=== PATIENT | female | born 1945 | race Caucasian/White ===

== ENCOUNTER → 2016-07-22 | Outpatient (CLI) | payer OTHER | LOC: FIMAGING 12:47 | DX: Z09 Encounter for follow-up examination after completed treatment for conditions other than malignant neoplasm (principal); Z98.890 Other specified postprocedural states | CPT/HCPCS: G0204 ==

== ENCOUNTER → 2017-06-13 | Outpatient (CLI) | payer OTHER | LOC: FIMAGING 13:41 | PROVIDERS: ATTEND Neurological Surgery | DX: M41.26 Other idiopathic scoliosis, lumbar region (principal); M51.36 Other intervertebral disc degeneration, lumbar region; M48.061 Spinal stenosis, lumbar region without neurogenic claudication ==

== ENCOUNTER → 2017-08-06 | Outpatient (CLI) | payer OTHER | LOC: FIMAGING 11:18 | PROVIDERS: ATTEND Family Medicine | DX: Z12.31 Encounter for screening mammogram for malignant neoplasm of breast (principal) ==

== ENCOUNTER 2017-08-09 14:25 | Day surgery (SDC) | payer OTHER ==
--- NOTE | 2017-08-09 14:15 | PDANEPAE ---
ANE History of Present Illness here for egd/eus ANE Past Medical History - Cardiovascular History Hx Hypertension: Yes Hx Arrhythmias: No Hx Chest Pain: No Hx Coronary Artery / Peripheral Vascular Disease: No Hx CHF / Valvular Disease: No Hx Palpitations: No - Pulmonary History Hx COPD: No Hx Asthma/Reactive Airway Disease: No Hx Recent Upper Respiratory Infection: No Hx Oxygen in Use at Home: No Hx Sleep Apnea: No - Neurologic History Hx Cerebrovascular Accident: No Hx Seizures: No Hx Dementia: No Neurologic History Comment: PAST MIGRAINES - Endocrine History Hx Diabetes: Yes Endocrine History Comment: prediabetic - Renal History Hx Renal Disorders: No - Liver History Hx Hepatic Disorders: No - Neurological & Psychiatric Hx Hx Neurological and Psychiatric Disorders: No Neurological / Psychiatric History Comment: MILD ANXIETY/INSOMNIA - Cancer History Hx Cancer: No - Congenital Disorder History Hx Congenital Disorders: No - GI History Hx Gastrointestinal Disorders: Yes Gastrointestinal History Comment: hiatal hernia - Other Health History Other Health History: NEG - Chronic Pain History Chronic Pain: Yes (BACK PAIN LUMBAR) - Surgical History Prior Surgeries: microdiscectomy, foraminotomy,hysterectomy. EPIDURAL INJS LUMBAR. TUBAL LIGATION 1979. CHOLECYSTECOMY 1996 ANE Review of Systems Review of systems is: negative Review of Systems: - Exercise capacity Exercise capacity: >=4 METS METS (RN): 4 METS ANE Patient History - Allergies Allergies/Adverse Reactions: nitrofurantoin macrocrystalline [From Macrodantin] Allergy (Severe, Verified 14:09) Fever - Home Medications Home medications: home medication list seen and reviewed Home Medications: Aspirin 81mg (OTC) 81 mg PO DAILY 09/09/15 [Last Taken 09/15/15] Atorvastatin Calcium 10 mg PO HS 09/09/15 [Last Taken 09/22/15 22:00] Lisinopril 20 mg PO DAILY 09/09/15 [Last Taken 09/22/15 22:00] Metformin HCl 500 mg PO BID 09/09/15 [Last Taken 09/22/15 19:00] Mvi, Adult No.2 Without Vit K 1 tab PO DAILY 09/09/15 [Last Taken 09/15/15] [facility] 3 500 Softgel 700 mg PO BID 09/09/15 [Last Taken 09/15/15] Vitamin E 1 cap PO DAILY 09/09/15 [Last Taken 09/15/15] Herbals/Supplements -Info Only 07/28/17 [Last Taken Unknown] Niacin 07/28/17 [Last Taken Unknown] - NPO status NPO Status: no food or drink >8 hours - Smoking Hx Smoking Status: Former smoker - Family Anes Hx Family Hx Anesthesia Complications: no ANE Labs/Vital Signs - Vital Signs Vital Signs: reviewed preoperatively; see RN documention for details Height: 154.94 cm Weight: 82.024 kg ANE Anesthesia Plan Anesthesia Plan: GA with mask
[2017-08-09] MEDS ORDERED: LR 1,000 ML IV ONE (14:45)
[2017-08-09] MEDS ORDERED: LIDOCAINE 1% 2 ML INJ ID PRN (14:45)
[2017-08-09] MEDS ORDERED: LIDOCAINE 1% 2 ML INJ ONE (14:46)
[2017-08-09] MEDS ORDERED: PROPOFOL/EMULSION 500 MG/50 ML BOTTLE IV ONE (15:17)
--- NOTE | 2017-08-09 15:23 | PDGENHP ---
History & Physical Chief Complaint: subepithelial lesion History of Present Illness: 72 year old female presents for evaluation of subepithelial lesion. Pertinent Past, Social, Family History: PMHx: DM, HTN. PSurgHx: CCY, TA Relevant Physical Exam: HEENT: anicteric. CV: RRR +s1s2. lungs: CTAB. Abd: soft, nt, + bS Cardiorespiratory Assessment: ASA 2
[2017-08-09] MEDS ORDERED: LR 500 ML IV PRN (15:35)
[2017-08-09] MEDS ORDERED: NS 500 ML IV PRN (15:35)
[2017-08-09] MEDS ORDERED: fentaNYL 100 MCG/2 ML INJ IVP PRN (15:35)
[2017-08-09] MEDS ORDERED: ALBUTEROL 3 ML DEYVIAL IH PRN (15:35)
--- NOTE | 2017-08-09 15:36 | PDANEPAE ---
ANE History of Present Illness here for egd/eus ANE Past Medical History - Cardiovascular History Hx Hypertension: Yes Hx Arrhythmias: No Hx Chest Pain: No Hx Coronary Artery / Peripheral Vascular Disease: No Hx CHF / Valvular Disease: No Hx Palpitations: No - Pulmonary History Hx COPD: No Hx Asthma/Reactive Airway Disease: No Hx Recent Upper Respiratory Infection: No Hx Oxygen in Use at Home: No Hx Sleep Apnea: No Sleep Apnea Screening Result - Last Documented: Positive - Neurologic History Hx Cerebrovascular Accident: No Hx Seizures: No Hx Dementia: No Neurologic History Comment: PAST MIGRAINES - Endocrine History Hx Diabetes: Yes Endocrine History Comment: prediabetic - Renal History Hx Renal Disorders: No - Liver History Hx Hepatic Disorders: No - Neurological & Psychiatric Hx Hx Neurological and Psychiatric Disorders: No Neurological / Psychiatric History Comment: MILD ANXIETY/INSOMNIA - Cancer History Hx Cancer: No - Congenital Disorder History Hx Congenital Disorders: No - GI History Hx Gastrointestinal Disorders: Yes Gastrointestinal History Comment: hiatal hernia - Other Health History Other Health History: NEG - Chronic Pain History Chronic Pain: Yes (BACK PAIN LUMBAR) - Surgical History Prior Surgeries: microdiscectomy, foraminotomy,hysterectomy. EPIDURAL INJS LUMBAR. TUBAL LIGATION 1979. CHOLECYSTECOMY 1996 ANE Review of Systems Review of systems is: negative Review of Systems: - Exercise capacity Exercise capacity: >=4 METS METS (RN): 4 METS ANE Patient History - Allergies Allergies/Adverse Reactions: nitrofurantoin macrocrystalline [From Macrodantin] Allergy (Severe, Verified 14:09) Fever - Home Medications Home medications: home medication list seen and reviewed Home Medications: Aspirin 81mg (OTC) 81 mg PO DAILY 09/09/15 [Last Taken 08/02/17] Atorvastatin Calcium 10 mg PO HS 09/09/15 [Last Taken 08/08/17 20:00] Lisinopril 20 mg PO DAILY 09/09/15 [Last Taken 08/09/17] Metformin HCl 500 mg PO BID 09/09/15 [Last Taken 08/06/17] Mvi, Adult No.2 Without Vit K 1 tab PO DAILY 09/09/15 [Last Taken 08/02/17] [place] 3 500 Softgel 700 mg PO BID 09/09/15 [Last Taken 08/02/17] Vitamin E 1 cap PO DAILY 09/09/15 [Last Taken 08/02/17] Herbals/Supplements -Info Only 07/28/17 [Last Taken 08/02/17] Niacin 07/28/17 [Last Taken 08/02/17] - NPO status NPO Status: no food or drink >8 hours NPO Since - Liquids (Date): 08/09/17 NPO Since - Liquids (Time): 07:00 NPO Since - Solids (Date): 08/09/17 NPO Since - Solids (Time): 07:00 - Smoking Hx Smoking Status: Former smoker - Family Anes Hx Family Hx Anesthesia Complications: no ANE Labs/Vital Signs - Vital Signs Vital Signs: reviewed preoperatively; see RN documention for details Blood Pressure: 95/72 Heart Rate: 73 Respiratory Rate: 16 O2 Sat (%): 95 Height: 154.94 cm Weight: 82.024 kg ANE Physical Exam - Airway Neck exam: FROM Mallampati Score: Class 1 - Pulmonary Pulmonary: no respiratory distress - Cardiovascular Cardiovascular: regular rate and rhythym - ASA Status ASA Status: II ANE Anesthesia Plan Anesthesia Plan: GA with mask
[2017-08-09] MEDS ORDERED: PROPOFOL 200 MG/20 ML VIAL ONE (15:43)
[2017-08-09] MEDS ORDERED: INDOMETHACIN 50 MG SUPP PR PRN (16:11)
[2017-08-09] MEDS ORDERED: NS 500 ML IV SCH (16:15)
[2017-08-09 16:33] VITALS: BP 111/71; PULSE 72; RESP 15; TEMP 97.7; O2SAT 100
--- NOTE | 2017-08-09 19:04 | POSTANESTH ---
Post Anesthetic Evaluation Cardiovascular Status: Normal, Stable Respiratory Status: Normal, Stable Level of Consciousness/Mental Status: Can Participate in Eval Pain Control: Adequate, Prn Tx Ordered Nausea/Vomiting Control: Adequate, Prn Tx Ordered Complications Possibly Related to Anesthesia: None Noted
--- NOTE | 2017-08-09 20:45 | GPN ---
[f rep st] PROCEDURE NOTE DATE OF PROCEDURE: 08/09/2017 PROCEDURE: Esophagogastroscopy with biopsy and endoscopic ultrasound. INDICATION: The patient is a 72-year-old female, presents for evaluation/surveillance of a subepithe lial lesion in the cardia of the stomach. CONSENT: Risks, benefits, and alternatives of the procedure discussed in great detail with the patie nt. Risks of infection, bleeding, perforation, sedation were discussed. All questions answered. In formed consent was obtained. MEDICATIONS: Propofol. Please see Anesthesia for details. ESTIMATED BLOOD LOSS: Insignificant. ESOPHAGOGASTROSCOPY EXAMINATION: The Olympus upper endoscope was inserted in the mouth and advanced to the esophagus. The proximal and mid esophagus were normal in appearance. The stomach was entered and closely examined, including retroflexed views of angulus, cardia and fund us. A large hiatal hernia was noted. In the cardia of the stomach, a large 2 cm lesion was seen. T unnel biopsies were taken after EUS examination. The antrum and body were erythematous in a patchy distribution, and biopsies were taken. The duodenal bulb was entered and the duodenum was normal in appearance. ENDOSCOPIC ULTRASOUND EXAMINATION: The Olympus linear echoendoscope was introduced in the mouth and advanced to the 2nd portion of duodenum. The esophagus and stomach and duodenum were visualize endos onographically. The lesion of the cardia was attempted to be studied, but the closest the scope could get was approxi mately 3 cm from the lesion. It was hypoechoic around it and measured approximately 1.5 cm. It appe ared to rest in the muscularis propria layer, but it was seen at least 3-4 cm from the ultrasound pro be, making visualization difficult. The pancreas was examined from the uncinate process to the tail, where the spleen was seen. The panc reatic parenchyma had hyperechoic foci. The common bile duct was seen and was without stone, stricture, stenosis. No obvious liver lesions n oted. IMPRESSION: 1. Stable size of lesion. 2. Gastritis status post biopsy. 3. Hiatal hernia. 4. Subepithelial lesion. RECOMMENDATION: 1. Follow up on biopsy results. 2. We will discuss plan with patient after biopsy results are back. /[id number]/MODL
== END 2017-08-09 17:13 | disposition home or self-care (01) ==
LOC: FSGY 14:25
PROVIDERS: ATTEND Internal Medicine Gastroenterology
PROC: 0DB68ZX Excision of Stomach, Via Natural or Artificial Opening Endoscopic, Diagnostic (ICD-10-PCS; principal; 2017-08-09 15:45)
DX: K31.89 Other diseases of stomach and duodenum (principal); E11.9 Type 2 diabetes mellitus without complications; I10 Essential (primary) hypertension; K44.9 Diaphragmatic hernia without obstruction or gangrene
CPT/HCPCS: J2704

== ENCOUNTER → 2018-04-09 | Outpatient (CLI) | payer OTHER | LOC: FIMAGING 14:13 | PROVIDERS: ATTEND Neurological Surgery | DX: M51.37 Other intervertebral disc degeneration, lumbosacral region (principal); M53.87 Other specified dorsopathies, lumbosacral region; M48.07 Spinal stenosis, lumbosacral region ==

== ENCOUNTER → 2018-04-18 | Outpatient (CLI) | payer OTHER | LOC: BMCIMAGING 11:05 | PROVIDERS: ATTEND Physician Assistant | DX: Z13.820 Encounter for screening for osteoporosis (principal); M85.89 Other specified disorders of bone density and structure, multiple sites; M51.36 Other intervertebral disc degeneration, lumbar region; M48.07 Spinal stenosis, lumbosacral region; M51.17 Intervertebral disc disorders with radiculopathy, lumbosacral region ==

== ENCOUNTER 2018-04-26 09:03 | Inpatient (IN) | payer OTHER ==
--- NOTE | 2018-04-26 06:22 | PDHPUP ---
History & Physical Update H&P update statement: This history and physical update is based on an assessment of the patient which was completed after admission or registration (within 24 hours), but prior to the surgery/procedure. H&P update: H&P reviewed & patient examined, no change in patient's condition since H&P completed
[~2018-04-26 09:03] MED LIST: DEXAMETHASONE 4 MG/ML VIAL ONE; LIDOCAINE 2% 5 ML SDV ONE; ONDANSETRON 4 MG/2 ML VIAL ONE; PROPOFOL 200 MG/20 ML VIAL ONE; PROPOFOL/EMULSION 500 MG/50 ML BOTTLE IV ONE; ROCURONIUM 50 MG/5 ML VIAL ONE; fentaNYL 250 MCG/5 ML INJ ONE
[2018-04-26] MEDS ORDERED: LIDOCAINE 1% 2 ML INJ ID PRN (09:12)
[2018-04-26] MEDS ORDERED: LR 1,000 ML IV ONE (09:12)
[2018-04-26] MEDS ORDERED: ACETAMINOPHEN 500 MG TAB PO ONE (09:31)
[2018-04-26] MEDS ORDERED: ceFAZolin 2 GM/DEXTROSE 100 ML IV ONE (09:31)
[2018-04-26] MEDS ORDERED: oxyCODONE IR 5 MG TAB PO PRN (09:31)
[2018-04-26] MEDS ORDERED: HYDROmorphONE/DILAUDID 2 MG/ML INJ IVP PRN (09:31)
[2018-04-26] MEDS ORDERED: LR 500 ML IV PRN (09:31)
[2018-04-26] MEDS ORDERED: ONDANSETRON 4 MG/2 ML VIAL IVP PRN ×2 (09:31→10:45)
[2018-04-26] MEDS ORDERED: GABAPENTIN 300 MG CAP PO ONE (09:31)
[2018-04-26] MEDS ORDERED: MIDAZOLAM 2 MG/2 ML VIAL IVP ONE (09:31)
[2018-04-26] MEDS ORDERED: NALOXONE HCL 0.4 MG/ML INJ IVP PRN ×2 (09:31→10:45)
[2018-04-26] MEDS ORDERED: fentaNYL 100 MCG/2 ML INJ IVP PRN (09:31)
[2018-04-26] MEDS ORDERED: PROMETHAZINE HCL 25 MG/ML INJ IVP PRN (09:31)
[2018-04-26] MEDS ORDERED: PHENYLEPHRINE HCL 100 MCG/ML SYR IVP PRN (09:31)
[2018-04-26] MEDS ORDERED: METOCLOPRAMIDE 10 MG/2 ML VIAL IVP PRN (09:31)
[2018-04-26] MEDS ORDERED: GABAPENTIN 300 MG CAP ONE (09:55)
[2018-04-26] MEDS ORDERED: BACITRACIN 50,000 UNITS/10 ML SYR IRR ONE (10:02)
[2018-04-26] MEDS ORDERED: THROMBIN (BOVINE) 5,000 UNIT VIAL TP ONE (10:02)
[2018-04-26] MEDS ORDERED: BUPIVACAINE/EPI 0.25% 30 ML SDV ONE (10:02)
[2018-04-26] MEDS ORDERED: CHLORHEXIDINE GLUC HIBICLENS 118 ML BTL TP ONE (10:02)
--- NOTE | 2018-04-26 10:26 | PDANEPAE ---
ANE Past Medical History - Cardiovascular History Hx Hypertension: Yes Hx Arrhythmias: No Hx Chest Pain: No Hx Coronary Artery / Peripheral Vascular Disease: No Hx CHF / Valvular Disease: No Hx Palpitations: No - Pulmonary History Hx COPD: No Hx Asthma/Reactive Airway Disease: No Hx Recent Upper Respiratory Infection: No Hx Oxygen in Use at Home: No Hx Sleep Apnea: No Sleep Apnea Screening Result - Last Documented: Positive - Neurologic History Hx Cerebrovascular Accident: No Hx Seizures: No Hx Dementia: No Neurologic History Comment: PAST MIGRAINES - Endocrine History Hx Diabetes: Yes Endocrine History Comment: prediabetic - Renal History Hx Renal Disorders: No - Liver History Hx Hepatic Disorders: No - Neurological & Psychiatric Hx Hx Neurological and Psychiatric Disorders: No Neurological / Psychiatric History Comment: MILD ANXIETY/INSOMNIA - Cancer History Hx Cancer: No - Congenital Disorder History Hx Congenital Disorders: No - GI History Hx Gastrointestinal Disorders: Yes Gastrointestinal History Comment: hiatal hernia - Other Health History Other Health History: NEG - Chronic Pain History Chronic Pain: Yes (BACK PAIN LUMBAR) - Surgical History Prior Surgeries: microdiscectomy, foraminotomy,hysterectomy. EPIDURAL INJS LUMBAR. TUBAL LIGATION 1979. CHOLECYSTECOMY 1996 ANE Review of Systems Review of Systems: - Exercise capacity METS (RN): 4 METS ANE Patient History - Allergies Allergies/Adverse Reactions: nitrofurantoin macrocrystalline [From Macrodantin] Allergy (Severe, Verified 14:09) Fever - Home Medications Home Medications: Aspirin 81mg (OTC) 81 mg PO DAILY 09/09/15 [Last Taken 04/16/18] Atorvastatin Calcium 10 mg PO HS 09/09/15 [Last Taken 04/25/18 21:00] Metformin HCl 500 mg PO BID 09/09/15 [Last Taken 04/26/18 05:30] Mvi, Adult No.2 Without Vit K 1 tab PO DAILY 09/09/15 [Last Taken 04/16/18] [place] 3 500 Softgel 700 mg PO BID 09/09/15 [Last Taken 04/16/18] Vitamin E 1 cap PO DAILY 09/09/15 [Last Taken 04/16/18] Herbals/Supplements -Info Only 07/28/17 [Last Taken 04/16/18] Niacin 07/28/17 [Last Taken 04/16/18] Olmesartan Medoxomil 04/26/18 [Last Taken 04/25/18 21:00] - NPO status NPO Since - Liquids (Date): 04/25/18 NPO Since - Liquids (Time): 21:00 NPO Since - Solids (Date): 04/25/18 NPO Since - Solids (Time): 19:30 - Smoking Hx Smoking Status: Former smoker - Family Anes Hx Family Hx Anesthesia Complications: no ANE Labs/Vital Signs - Vital Signs Height: 154.94 cm Weight: 83.915 kg ANE Physical Exam - Airway Neck exam: FROM Mallampati Score: Class 2 Mouth exam: normal dental/mouth exam - Pulmonary Pulmonary: no respiratory distress, no rales or rhonchi, clear to auscultation - Cardiovascular Cardiovascular: regular rate and rhythym, no murmur, rub, or gallop - ASA Status ASA Status: II ANE Anesthesia Plan Anesthesia Plan: general endotracheal anesthesia
[2018-04-26] MEDS ORDERED: ZOLPIDEM TARTRATE 5 MG TAB PO PRN (10:45)
[2018-04-26] MEDS ORDERED: ONDANSETRON DISINTEGRATING 4 MG TAB PO PRN (10:45)
[2018-04-26] MEDS ORDERED: NS 1,000 ML IV SCH (10:45)
[2018-04-26] MEDS ORDERED: LACTULOSE 20 GM/30 ML UDCUP PO PRN (10:45)
[2018-04-26] MEDS ORDERED: POLYETHYLENE GLYCOL 3350 17 GM PKT PO PRN (10:45)
[2018-04-26] MEDS ORDERED: diphenhydrAMINE 25 MG CAP PO PRN (10:45)
[2018-04-26] MEDS ORDERED: MAGNESIUM HYDROXIDE 30 ML UDCUP PO PRN (10:45)
[2018-04-26] MEDS ORDERED: HYDROmorphONE/DILAUDID 6 MG/30 ML PCA IV PRN (10:45)
[2018-04-26] MEDS ORDERED: HYDROmorphONE/DILAUDID 1 MG/ML INJ IVP PRN (10:45)
[2018-04-26] MEDS ORDERED: HYDROCODONE/APAP 5/325 TAB PO PRN (10:45)
[2018-04-26] MEDS ORDERED: BISACODYL 10 MG SUPP PR PRN (10:45)
[2018-04-26] MEDS ORDERED: ePHEDrine SULFATE 25 MG/5 ML SYR ONE (11:14)
[2018-04-26] MEDS ORDERED: PHENYLEPHRINE HCL 100 MCG/ML SYR ONE ×2 (11:14→11:57)
[2018-04-26] MEDS ORDERED: PROPOFOL/EMULSION 500 MG/50 ML BOTTLE IV ONE ×3 (12:01→13:04)
[2018-04-26] MEDS ORDERED: PHENYLEPHRINE 10 MG/ML SDV ONE (12:36)
--- NOTE | 2018-04-26 14:37 | POSTOPPROG ---
Post Op Note Date of Operation: 04/26/18 Surgeon: Hveer Lopez Restaurant Associate: KHURRAM Guerrero Anesthesiologist: MD Micheal Anesthesia: GET(General Endotracheal), Local (Specify) Pre-op Diagnosis: lumbar stenosis, RLE pain Post-op Diagnosis: lumbar stenosis, RLE pain Indication: lumbar radiculopathy Procedure: TLIF L3/4 and L4/5 Findings: see op report Inf/Abcess present in the surg proc area at time of surgery?: No Depth: Deep Incisional (Fascial) EBL: 100-500 Total fluids administered: see anesthesia record Complications: none Drains: Jordan Martinez
--- NOTE | 2018-04-26 14:45 | SOAPPROG ---
SOAP Progress Note Assessment/Plan: Post Op Visit: S: Awake and alert. Pt with expected lower back pain O: AFVSS/PERRLA/EOMI no droop CN 2-12 grossly intact +lt touch 5/5 BUE/BLE = CDI LEANNA in place A/P: 72 yo female that is s/p TLIF L3/4 and L4/5 -orders in place -call with any questions or concerns -pt seen by Dr Lopez -post op xrays in am -PT/OT ICD10 Worksheet Patient Problems: Problems Problem Status Onset Arthrodesis status Acute Lumbar radicular pain Acute Lumbar stenosis Acute - ICD10 Problem Qualifiers (1) Lumbar stenosis (2) Lumbar radicular pain (3) Arthrodesis status
[2018-04-26] MEDS ORDERED: DIAZEPAM 5 MG/ML 1 ML SYR ONE (15:27)
[2018-04-26] MEDS ORDERED: DIAZEPAM 5 MG/ML 1 ML SYR IVP ONE (15:45)
--- NOTE | 2018-04-26 16:38 | GOP ---
DATE OF OPERATION: 04/26/2018 SURGEON: Beau Lopez MD NEUROSURGEON: Beau Lopez MD CIRCULATION WORKER: EVER Pickett PREOPERATIVE DIAGNOSIS: Lumbar degenerative scoliosis L3-4, L4-5, lumbar degenerative disk disease L 2-3, 3-4, 4-5, 5-1, severe right lumbosacral radiculopathy, right foraminal stenosis, L3-4, L4-5, aaron or surgery right L4-5. POSTOPERATIVE DIAGNOSIS: PROCEDURE PERFORMED: Posterolateral and intervertebral arthrodesis with right-sided angelic decompressi ons at L3-4, L4-5 ([id number], [id number]), posterior segmental instrumentation L3, L4, L5, spinal stereotaxy, microscope, placement of biomechanical intervertebral device L3-4, L4-5, same incision bone graft rebecca vest. FINDINGS: ESTIMATED BLOOD LOSS: 200 cc. INDICATIONS: The patient is a 72-year-old with prior history of an L4-5 right-sided decompression wi th good clinical result at that time who developed over the last several months, increasingly severe and intractable right lumbosacral radiculopathy, I think principally due to compression of the L4 ner ve root in the neural foramen. She also had right lateral recess stenosis at L3-4. She had a degene rative tilt of L5 on S1 with severe left foraminal stenosis at L5-S1, but had no left-sided symptoms. At one point, we had discussed doing an L4-5, 5-1 fusion on her, but she developed intractable right- sided pain, and I thought L3-4, 4-5, 5-1 should be considered. I spent considerable time looking at her films and I was very concerned about her obesity, as well as her advanced age, and after discussi ng this with her, in the absence of left-sided symptoms, I thought we should focus on just the right- sided symptoms at L3-4, L4-5. I did express my opinion that she might likely need surgery at L5-S1 i n the very near future, but leaving this unaddressed currently in the absence of symptoms from that l obedel, I thought it might allow us to do a better job of L3-4, L4-5, and decrease the strain on the abilio ttom of the construct at L4-5. The risk of continued symptoms nerve injury, spinal fluid leak, and p seudoarthrosis, as well as adjacent segment disease, and the possible need for surgery at L2-3 and L5 -S1 in the future was discussed. She understood these risks and she did want to proceed. DESCRIPTION OF PROCEDURE: Patient was taken to the operating room, placed in supine position. Gener al anesthesia was begun. She was flipped prone onto the Jordan table. Care was taken to pad all po ints of contact. Her back was sterilely prepped and draped in usual fashion. We marked a midline in cision. She had a prior incision that was about 13 to 14 mm in length. We marked it and then extended it sig nificantly rostrally and inferiorly for a total length of our incision of about 8.5 cm. The subcutan eous tissue was dissected using Bovie cautery down to the fascia and a subperiosteal dissection was m paz down the inferior lamina of L2. The lamina of L3, 4, and 5 was exposed. We shot localizing x-ra ys. We denuded the bilateral facet joints at L3-4, L4-5. There was a terrible degenerative tilt of L4 and L5, and the L4 pedicle was virtually touching the L5 pedicle. We attached the [employer] frame, performed an O-arm spin, and using frameless Stealth stereotaxy, we placed pedicle screws b ilaterally at L3, L4, and L5. There was good bony purchase. Her bone quality was so-so, it was not terrific, but it was not terrible, and I was happy with the purchase of the screws. We then began to subsequently get elevation on the right-hand side at 3- 5 to reduce the degenerative scoliosis, and we did it piecemeal fashion going a few millimeters and simply walking up the karen. We got great redu ction of the degenerative scoliosis and got the L4 screw off the L5 screws. I was very happy with th e alignment that we were able to achieve. There was still some bony retrolisthesis of L3 on L4 that remained, but the degenerative scoliosis was totally reduced. We then removed all the soft tissue of the bone at L3-4, L4-5 and harvested the L4 spinous process fo r autologous grafting purposes. We harvested the inferior L3 spinous process for autologous grafting purposes. Under the microscope, we drilled a complete right L3 hemilaminectomy, removing the L3-4 f acet joint on the right-hand side, and we did, likewise, on the right at L4-5, drilling away the righ t L4-5 facet joint. This obviously was more difficult because of the prior laminotomy on the right-h and side at L4-5, and this took considerable time. We got great decompression L3-4, and then, we wor ked our way down into the area at the prior laminotomy at L4-5. We were able to totally un-pinch the exiting L4 nerve root at that level. We then removed the rostrum of the L5 lamina and worked our wa y flush with the L5 pedicle, and there was adherent scar in this location, but we were able to remove all this material and left only a tiny piece of scar stuck to the dura. We mobilized the traversing L5 nerve root at that level, incised the L4-5 disk, and removed the disk and the cartilaginous endpl ates to create arthrodesis. We did roughen the subchondral bone for arthrodesis at that level. We went to the L3-4 level where we did, likewise, and here is a little more straightforward because o f it being a virgin level. We incised the L3-4 disk, removed the disk and the cartilaginous endplate s. We roughened the subchondral bone to create arthrodesis. We then sized each of those and chose a 7 x 23 mm device. We packed it with bone autograft and BMP and then took the device and packed the device with BMP. We inserted both of the devices under fluoroscopic guidance and I was happy with th e device. The device at L3-4 was definitely sunk within the disk space. There was still some retrol isthesis of L3 on L4, and it was more flush with the posterior aspect of the L4 vertebral body, but i t was well sunken into the disk space away from the nerves. We expanded under fluoroscopic guidance and I was happy with the position of the devices. We then inspected them again once they had been ex panded and I will still happy with it. We decorticated all remaining posterolateral bone bilaterally , placed bone autograft and BMP posterolaterally bilaterally, followed by a subfascial drain. We irr igated with large amounts of antibiotic saline throughout the surgery. We then closed the incision i n multiple layers using Vicryl sutures. A running PDS was placed in the skin, itself. There were no complications. Patient tolerated the procedure well. COMPLICATIONS: None. INSTRUMENTATION USED: Solera 5.5 mm system. We used a 7 x 23 mm Elevate cage at 3-4,4-5. /[id number]/MODL
[2018-04-26] MEDS: ACETAMINOPHEN 500 MG TAB PO SCH ×2 (16:58→21:32)
[2018-04-26] MEDS: GABAPENTIN 300 MG CAP PO SCH ×2 (16:58→21:33)
--- NOTE | 2018-04-26 17:05 | PDMN ---
Medical Necessity Medical necessity: Pt meets IP criteria as of 04/26/[address] [facility] [facility] Lumbar fusion, Medicare IP only procedure.
[2018-04-26] MEDS: oxyCODONE IR 5 MG TAB PO PRN (17:06)
[2018-04-26] MEDS: METHOCARBAMOL 750 MG TAB PO PRN (17:06)
[2018-04-26] MEDS: ceFAZolin 2 GM/DEXTROSE 100 ML IV SCH (17:47)
[2018-04-26] MEDS: FAMOTIDINE 20 MG TAB PO SCH (21:34)
[2018-04-26] MEDS: SENNOSIDES/DOCUSATE SODIUM TAB PO SCH (21:34)
[2018-04-27] MEDS: ceFAZolin 2 GM/DEXTROSE 100 ML IV SCH (02:11)
[2018-04-27] MEDS: METHOCARBAMOL 750 MG TAB PO PRN ×2 (03:01→13:26)
[2018-04-27] MEDS: oxyCODONE IR 5 MG TAB PO PRN ×3 (03:03→21:31)
[2018-04-27 05:08] LABS: PLATELET COUNT 305 10^3/uL (150-400)
[2018-04-27] MEDS: ACETAMINOPHEN 500 MG TAB PO SCH ×3 (05:43→21:23)
[2018-04-27] MEDS: GABAPENTIN 300 MG CAP PO SCH ×3 (05:43→21:22)
[2018-04-27] MEDS ORDERED: DIAZEPAM 5 MG TAB PO PRN (07:14)
--- NOTE | 2018-04-27 07:22 | NEUSURGPN ---
Date of Surgery: 04/26/18 Post Op Day: 1 Assessment/Plan: Assessment: 72 yo female that is s/p TLIF L3/4 and L4/5 POD #1 Plan: -s/p TLIF L3/4 and L4/5: doing well this am, pt with expected lower back pain -brace when out of bed -pt states that her legs feel better -orders in place -call with any questions or concerns -pt seen by Dr Lopez as well -post op xrays this am -PT/OT-CPM -pt understands and agrees Subjective: Awake and alert. NAD. Pt with expected lower back pain. Legs feel better. No brock/neck/chest/abd or gu complaints. Objective: AFVSS/PERRLA/EOMI no droop CN 2-12 grossly intact +lt touch 5/5 BUE/BLE = CDI LEANNA in place Neuro Check Frequency: per routine Urinary Catheter in Place: No Catheter Insertion Date: 04/26/18 - Physician Discussed Patient with : John Patient Seen by : John Neurosurgery Physical Exam - Vitals, I&O, Labs I and O 04/26/18 04/27/18 04/28/18 05:59 05:59 05:59 Intake Total 2559 Output Total 1545 Balance 1014 Weight 83.915 kg Intake: Oral (ml) 900 IV Intake (ml) 1659 Output: Urine (ml) 1175 Catheter 1175 LEANNA Drain Output (ml) 370 Back Jordan Martinez 370 Vital Signs Temp Pulse Resp BP Pulse Ox 37.1 C 78 18 96/60 L 97 04/27/18 04:44 04/27/18 04:44 04/27/18 04:44 04/27/18 04:44 04/27/18 04:44 Laboratory Results 04/27/18 04:50 04/27/18 04:50 ICD10 Worksheet Patient Problems: Problems Problem Status Onset Arthrodesis status Acute Lumbar radicular pain Acute Lumbar stenosis Acute - ICD10 Problem Qualifiers (1) Lumbar stenosis (2) Lumbar radicular pain (3) Arthrodesis status
[2018-04-27] MEDS: SENNOSIDES/DOCUSATE SODIUM TAB PO SCH ×2 (08:13→21:22)
[2018-04-27] MEDS: ATORVASTATIN CALCIUM 10 MG TAB PO SCH (08:13)
[2018-04-27] MEDS: FLUoxetine 20 MG CAP PO SCH (08:14)
[2018-04-27] MEDS: FAMOTIDINE 20 MG TAB PO SCH ×2 (08:14→21:22)
[2018-04-27] MEDS: MAGNESIUM OXIDE 400 MG TAB PO SCH (08:14)
[2018-04-27] MEDS: metFORMIN HCL 500 MG TAB PO SCH ×2 (08:14→17:57)
[2018-04-27] MEDS: OLMESARTAN MEDOXOMIL 20 MG TAB PO SCH (21:21)
[2018-04-28] MEDS: METHOCARBAMOL 750 MG TAB PO PRN ×2 (03:08→10:42)
[2018-04-28] MEDS: GABAPENTIN 300 MG CAP PO SCH (05:44)
[2018-04-28 05:48] LABS: PLATELET COUNT 246 10^3/uL (150-400)
[2018-04-28] MEDS: ACETAMINOPHEN 500 MG TAB PO SCH ×3 (08:31→21:13)
[2018-04-28] MEDS: metFORMIN HCL 500 MG TAB PO SCH ×2 (08:31→17:37)
[2018-04-28] MEDS: ATORVASTATIN CALCIUM 10 MG TAB PO SCH (08:31)
[2018-04-28] MEDS: FAMOTIDINE 20 MG TAB PO SCH ×2 (08:32→21:15)
[2018-04-28] MEDS: FLUoxetine 20 MG CAP PO SCH (08:32)
[2018-04-28] MEDS: SENNOSIDES/DOCUSATE SODIUM TAB PO SCH ×2 (08:32→21:14)
[2018-04-28] MEDS: MAGNESIUM OXIDE 400 MG TAB PO SCH (08:32)
--- NOTE | 2018-04-28 08:57 | NEUSURGPN ---
Date of Surgery: 04/26/18 Post Op Day: 2 Assessment/Plan: Assessment: 72 yo female that is s/p TLIF L3/4 and L4/5 POD #2 Plan: -s/p TLIF L3/4 and L4/5: doing well this am, pt with expected lower back pain -ok to pull drain-order in place -will decrease gabapentin as pt is a "bit loopey on it" per RN and Pt -H/H was 6.7/22 this am-will discuss with Dr Lopez regarding need for blood. Vitals are fine. Pt feels ok and is not dizzy. Pt walking in ch well. Will start iron replacement. Repeat CBC in am -brace when out of bed -pt states that her legs feel better -orders in place -call with any questions or concerns -pt seen by Dr Lopez as well -post op xrays reviewed and look good -PT/OT-CPM -pt understands and agrees -plan for dc likely tomorrow Subjective: Awake and alert. NAD. Eating/drinking and voiding. No f/c/n/v/d. No brock/cp/ sob/abd or gu complaints. Objective: AFVSS/PERRLA/EOMI no droop CN 2-12 grossly intact +lt touch 5/5 BUE/BLE = CDI LEANNA in place-to be removed Neuro Check Frequency: per routine Urinary Catheter in Place: No Catheter Insertion Date: 04/26/18 - Physician Discussed Patient with : John Patient Seen by : John Neurosurgery Physical Exam - Vitals, I&O, Labs I and O 04/27/18 04/28/18 04/29/18 05:59 05:59 05:59 Intake Total 2559 350 Output Total 1545 50 Balance 1014 300 Weight 83.915 kg Intake: Oral (ml) 900 350 IV Intake (ml) 1659 Output: Urine (ml) 1175 Catheter 1175 LEANNA Drain Output (ml) 370 50 Back Jordan Martinez 370 50 Other: Intake Quantity Yes Sufficient Number of Voids Toilet 1 Vital Signs Temp Pulse Resp BP Pulse Ox 37.2 C 78 16 99/55 L 93 04/28/18 07:46 04/28/18 07:46 04/28/18 07:46 04/28/18 07:46 04/28/18 07:46 Laboratory Results 04/28/18 05:03 04/27/18 04:50 ICD10 Worksheet Patient Problems: Problems Problem Status Onset Arthrodesis status Acute Lumbar radicular pain Acute Lumbar stenosis Acute - ICD10 Problem Qualifiers (1) Lumbar stenosis (2) Lumbar radicular pain (3) Arthrodesis status
--- NOTE | 2018-04-28 10:11 | ASMTCMCOM ---
CM Note CM Note Notes: 04/28/2018 Case Management Note Pt admitted for LBP, radiculopathy and TLIF L3/4 and L4/5. Met w/pt to discuss discharge needs. Pt lives with . Pt is able to drive and there are no difficulties with obtaining groceries. Pt states "I'm just old, not elderly". Pt was independent with ADL's prior to admission. PT is recommending home. PCP is Ani Gibbons through [facility]. Case Management d/c poc: independent with follow up as directed. Case Management available if needs change. Date Signed: 04/28/2018 10:11 AM Electronically Signed By:Eliza Rolon RN
--- NOTE | 2018-04-28 11:40 | ASMTCMCOM ---
CM Note CM Note Notes: PT notified CM of recommendation for SNF. CM discussed options with pt and requested referral be sent to [facility]. Pt does have supportive family and help after discharge. CM to follow. Plan: [facility]. Date Signed: 04/28/2018 11:40 AM Electronically Signed By:ZAC Maldonado
[2018-04-28] MEDS: oxyCODONE IR 5 MG TAB PO PRN ×2 (15:07→21:15)
[2018-04-28] MEDS: GABAPENTIN 100 MG CAP PO SCH ×2 (15:07→21:14)
[2018-04-28] MEDS: OLMESARTAN MEDOXOMIL 20 MG TAB PO SCH (21:22)
[2018-04-29 05:25] LABS: PLATELET COUNT 255 10^3/uL (150-400)
[2018-04-29] MEDS: ACETAMINOPHEN 500 MG TAB PO SCH ×2 (05:59→14:47)
[2018-04-29] MEDS: GABAPENTIN 100 MG CAP PO SCH ×2 (05:59→14:47)
--- NOTE | 2018-04-29 06:12 | NEUSURGPN ---
Assessment/Plan: Assessment: 72 yo female that is s/p TLIF L3/4 and L4/5 POD #3 Plan: -H/H was 6.7 stable. Will start on iron replacement. -brace when out of bed -call with any questions or concerns -pt seen by Dr Lopez as well -post op xrays reviewed and look good -PT/OT -pt understands and agrees -Dispo planning for today if continues to do well. Will need repeat CBC on Wednesday Subjective: Denies any lightheadedness, dizziness No f/c/n/v/d. Objective: NAD A&Ox3 +lt touch 5/ BUE/BLE = CDI LEANNA in place-to be removed Catheter Insertion Date: 04/26/18 - Physician Discussed Patient with : [facility] Physical Exam - Vitals, I&O, Labs I and O 04/28/18 04/29/18 04/30/18 05:59 05:59 05:59 Intake Total 350 500 Output Total 50 200 Balance 300 300 Intake: Oral (ml) 350 500 Output: Urine (ml) 200 Toilet 200 LEANNA Drain Output (ml) 50 Back Jordan Martinez 50 Other: Intake Quantity Yes Yes Sufficient Number of Voids Toilet 1 1 Number of Stools Toilet 2 Vital Signs Temp Pulse Resp BP Pulse Ox 37.3 C 84 16 97/62 L 97 04/28/18 23:31 04/28/18 23:31 04/28/18 23:31 04/28/18 23:31 04/28/18 23:31 Laboratory Results 04/29/18 04:42 04/27/18 04:50 ICD10 Worksheet Patient Problems: Problems Problem Status Onset Arthrodesis status Acute Lumbar radicular pain Acute Lumbar stenosis Acute
[2018-04-29 07:40] VITALS: BP 104/64
[2018-04-29] MEDS ORDERED: ENOXAPARIN 40 MG/0.4 ML SYR SC SCH (09:00)
[2018-04-29] MEDS ORDERED: FERROUS SULFATE 325 MG TAB PO SCH (09:00)
[2018-04-29] MEDS: metFORMIN HCL 500 MG TAB PO SCH (09:21)
[2018-04-29] MEDS: MAGNESIUM OXIDE 400 MG TAB PO SCH (09:21)
[2018-04-29] MEDS: ATORVASTATIN CALCIUM 10 MG TAB PO SCH (09:21)
[2018-04-29] MEDS: SENNOSIDES/DOCUSATE SODIUM TAB PO SCH (09:21)
[2018-04-29] MEDS: FLUoxetine 20 MG CAP PO SCH (09:22)
[2018-04-29] MEDS: FAMOTIDINE 20 MG TAB PO SCH (09:22)
[2018-04-29] MEDS: METHOCARBAMOL 750 MG TAB PO PRN (09:37)
--- NOTE | 2018-04-29 11:07 | ASMTCMCOM ---
CM Note CM Note Notes: CM met with pt and family. They confirmed their wish for pt to go to [facility]; [facility] has accepted. D/C Plan: [facility] Date Signed: 04/29/2018 11:07 AM Electronically Signed By:Shruti Verma
[2018-04-29] MEDS: oxyCODONE IR 5 MG TAB PO PRN (14:47)
--- NOTE | 2018-04-29 15:25 | PDIAF ---
- Diagnosis Code Status: Full Code - Medication Management Discharge Medications: electronically signed and located in the Home Medication List. - Orders Services needed: Registered Nurse, Physical Therapy, Occupational Therapy - Follow Up Care Current Providers and Referrals: KATRIN BEVERLY MD [Primary Care Provider] - Hever Lopez MD [Medical Doctor] -
--- NOTE | 2018-04-29 15:30 | ASMTDCNOTE ---
Case Management Discharge Discharge Order Complete? Answers: Yes Patient to Obtain Answers: Other Notes: [facility] Medications Transportation Arranged Answers: [facility] will Pick (Date 04/29/2018 03:00 PM & Time) Case Management Transport Answers: Yes Form Complete Faxed Final Orders Answers: Yes Agency/Facility Transfer Answers: Yes Report Printed & Faxed to Receiving Agency Family Notified Answers: Yes Discharge Comments Notes: Pt d/suraj to [facility] Date Signed: 04/29/2018 03:30 PM Electronically Signed By:Shruti Verma
--- NOTE | 2018-04-29 15:32 | ASMTLACE ---
LACE Length of stay for Answers: 3 days current admission Acuity / Level of Answers: Yes Care: Did the patient have an inpatient admission? Comorbidities - select Answers: Diabetes (uncontrolled or all that apply controlled) Opioid dependence / Chronic pain Other Notes: HTN # of Emergency department Answers: 0 visits in the last 6 months Score: 12 Date Signed: 04/29/2018 03:31 PM Electronically Signed By:Shruti Verma
== END 2018-04-29 15:40 | DRG 455 ==
LOC: F3N 09:03 → EDSTATUS 10:30 → F3N 16:24
PROVIDERS: ADMIT Neurological Surgery; ATTEND Neurological Surgery
PROC: 0SG1071 Fusion of 2 or more Lumbar Vertebral Joints with Autologous Tissue Substitute, Posterior Approach, Posterior Column, Open Approach (ICD-10-PCS; principal; 2018-04-26 10:30)
PROC: 01NB0ZZ Release Lumbar Nerve, Open Approach (ICD-10-PCS; principal; 2018-04-26 10:30)
PROC: 4A1004G Monitoring of Central Nervous Electrical Activity, Intraoperative, Open Approach (ICD-10-PCS; principal; 2018-04-26 10:30)
PROC: 0ST40ZZ Resection of Lumbosacral Disc, Open Approach (ICD-10-PCS; principal; 2018-04-26 10:30)
PROC: 0SG10AJ Fusion of 2 or more Lumbar Vertebral Joints with Interbody Fusion Device, Posterior Approach, Anterior Column, Open Approach (ICD-10-PCS; principal; 2018-04-26 10:30)
PROC: 00NY0ZZ Release Lumbar Spinal Cord, Open Approach (ICD-10-PCS; principal; 2018-04-26 10:30)
DX: M48.07 Spinal stenosis, lumbosacral region (principal); M51.17 Intervertebral disc disorders with radiculopathy, lumbosacral region; M51.36 Other intervertebral disc degeneration, lumbar region; I10 Essential (primary) hypertension; G47.30 Sleep apnea, unspecified; G43.909 Migraine, unspecified, not intractable, without status migrainosus; G47.00 Insomnia, unspecified; R73.03 Prediabetes; Z87.891 Personal history of nicotine dependence
CPT/HCPCS: 97116-GP; 97161-GP; 97166-GO; 97535-GO; C1713; G8978-GP-CK; G8979-GP-CI; G8987-GO-CK; G8988-GO-CI; J0690; J1100; J1650; J2250; J2370; J2405; J2704; J3010; J3360